=== PATIENT | male | born 1960 | race Caucasian/White ===

== ENCOUNTER → 2018-03-29 09:45 | Outpatient (CLI) | payer OTHER, SELFPAY ==
--- NOTE | 2018-03-29 09:52 | US_ITS ---
STUDY: ABDOMINAL ULTRASOUND - RIGHT UPPER QUADRANT REASON FOR VISIT: Male, 57 years old. Right upper quadrant pain. TECHNIQUE: Ultrasound evaluation of the right upper quadrant was performed with real-time and static aguilar-scale imaging. TECHNICAL QUALITY: Adequate. COMPARISON: None. FINDINGS: Liver: The liver measures 13.2 cm. There is normal echogenicity of the liver. The bile ducts are within normal limits. There is hepatic color flow. The direction of portal flow is hepatopetal. There is no demonstrated mass lesion. Gallbladder: Normal distended gallbladder. The gallbladder wall measures 5 mm. There is a negative sonographic Mccloud's sign. There is no pericholecystic fluid. There are no gallstones. Common Bile Duct (C.B.D.): The common bile duct measures 4 mm. Pancreas: Normal size of the head, body and tail of the pancreas. There is normal echogenicity of the pancreas. There is no demonstrated pancreatic mass or cyst. Right Kidney: Normal size of the right kidney. The right kidney measures 10.3 cm. Normal renal cortex. The right cortex measures 1.4 cm. There is no demonstrated renal mass or cyst. There is no right hydronephrosis. US/Abdomen Limited IMPRESSION: Diffuse gallbladder wall thickening which may represent chronic cholecystitis or malignancy. No gallstones or pericholecystic cystic fluid. Electronically Signed: Phillip Shah MD at 5:21 EST , Service support ,
== END ==
DX: R10.11 Right upper quadrant pain (principal)
CPT/HCPCS: 76705

== ENCOUNTER 2018-05-10 07:57 | Day surgery (SDC) | payer OTHER, SELFPAY ==
[2018-04-25 09:45] VITALS: BMI 28.8
[2018-05-10] VITALS (7 sets, daily range): BP systolic 92–124; BP diastolic 58–83; PULSE 64–77; RESP 14–18; TEMP 36.1–36.4; O2SAT 95–98; BMI 28.3
--- NOTE | 2018-05-10 09:30 | EGD_PTH ---
PATIENT: PRECIOUS CURIEL LOC: EN U#:[id number] AGE/SX: 57/M ROOM: RE05/10/[address]: Dr. Anthony Mason MD : 1960 BED: DIS: 05/10/2018 SPEC #: [id number] RECD: 05/10/18 10:15 STATUS: CRISTOBAL AR #: [id number] ORLIN: 05/10/18 09:[address]: Anthony Mason DEPT: SURGICAL PATHOLOGY RECD BY: Frank Gloria ENTERED: 05/10/18 11:13 SP TYPE: EGD BIOPSY OTHR DR: Dr. Farzad Acosta MD Tissues: Gastric mucous membrane Procedures: Surgery Specimen Level IV HEADER OPERATION: Colonoscopy, EGD ([facility] [place]) PRE-OP DIAGNOSIS: RUQ pain; epigastric abdominal pain; screening TISSUE SUBMITTED: Antral biopsy for H. pylori and pathology MICROSCOPIC DIAGNOSIS Antral biopsy: Mild gastritis. See microscopic description and comment. SJ:rianna 05/11/18 COMMENT The results of immunohistochemistry for Helicobacter pylori will be reported separately ([id number]). MICROSCOPIC DESCRIPTION Slides are reviewed. The specimen shows fragments of gastric mucosa with chronic inflammatory cell infiltrates in the lamina propria consisting of lymphocytes and plasma cells, consistent with mild chronic gastritis. GROSS DESCRIPTION Received in fixative is one container labeled with the patient's name and designated antral biopsy. The specimen consists of one irregular fragment of light kiser soft tissue that measures 0.2 x 0.2 x 0.1 cm. The specimen is totally submitted in one cassette. / AM:rianna 05/10/18 TC:3 CPT: 18026
--- NOTE | 2018-05-10 09:30 | IMM_PTH ---
PATIENT: PRECIOUS CURIEL LOC: EN U#:[id number] AGE/SX: 57/M ROOM: RE05/10/[address]: Dr. Anthony Mason MD : 1960 BED: DIS: 05/10/2018 SPEC #: [id number] RECD: 05/10/18 11:46 STATUS: CRISTOBAL REChing #: [id number] ORLIN: 05/10/18 09:[address]: Anthony Mason DEPT: IMMUNOHISTOCHEMISTRY RECD BY: Irina Osullivan ENTERED: 05/10/18 11:46 SP TYPE: IMMUNO OTHR DR: Dr. Frazad Acosta MD Tissues: Stomach, NOS Procedures: H Pylori (initial) PHYSICIAN & INSTITUTION [place] [id number] SPECIMEN INFORMATION: Tissue Source: Antral biopsy Clinical Info: RUQ pain, epigastric abdominal pain Specimen Number: [id number] CPT code: 24596 METHODOLOGY: Deparaffinized sections of prefer/formalin-fixed tissue or PAP/DQ stained slides are incubated with monoclonal/polyclonal antibodies/oligonucleotide probes. Localization is made via biotin free immunoperoxidase method. Appropriate controls are performed and reacted as expected. Results on target cell population are indicated in the following table: RESULTS: ANTIBODY / CLONE RESULT H Pylori (polyclonal) negative These tests were developed and their performance characteristics determined by [facility]. They may not have been cleared or approved by the U.S. Food and Drug Administration. The FDA has determined that such clearance or approval is not necessary. INTERPRETATION: Antral biopsy: Negative for Helicobacter pylori organisms. SJ:rianna 05/11/18
--- NOTE | 2018-05-10 09:57 | OP.ENDO_ITS ---
Patient Name: Stone Dahl Procedure Date: 05/10/2018 9:30 AM Date of : 1960 Age: 57 Procedure: Upper GI endoscopy Indications: Epigastric abdominal pain, Abdominal pain in the right upper quadrant Providers: Anthony Mason MD Referring MD: Farzad Acosta Medicines: See the Anesthesia note for documentation of the administered medications Patient Profile: This is a 57 year old male. Refer to note in patient chart for documentation of history and physical. Complications: No immediate complications. Procedure: Pre-Anesthesia Assessment: - Prior to the procedure, a History and Physical was performed, and patient medications and allergies were reviewed. The patient's tolerance of previous anesthesia was also reviewed. The risks and benefits of the procedure and the sedation options and risks were discussed with the patient. All questions were answered, and informed consent was obtained. Prior Anticoagulants: The patient has taken no previous anticoagulant or antiplatelet agents. ASA Grade Assessment: II - A patient with mild systemic disease. After reviewing the risks and benefits, the patient was deemed in satisfactory condition to undergo the procedure. After obtaining informed consent, the endoscope was passed under direct vision. Throughout the procedure, the patient's blood pressure, pulse, and oxygen saturations were monitored continuously. The gastroscope was introduced through the mouth, and advanced to the second part of duodenum. The upper GI endoscopy was accomplished without difficulty. The patient tolerated the procedure well. Scope In: 9:38:32 AM Scope Out: 9:40:58 AM Total Procedure Duration Time 0 hours 2 minutes 26 seconds Findings: The Z-line was regular and was found 40 cm from the incisors. No biopsies or other specimens were collected for this exam. The examined esophagus was normal. The entire examined stomach was normal. Biopsies were taken with a cold forceps for Helicobacter pylori testing. The examined duodenum was normal. No biopsies or other specimens were collected for this exam. Impression: - Z-line regular, 40 cm from the incisors. No specimens collected. - Normal esophagus. - Normal stomach. Biopsied. - Normal examined duodenum. No specimens collected. Recommendation: - Discharge patient to home. - Resume previous diet. - Continue present medications. - Await pathology results. - Repeat upper endoscopy (date not yet determined) for screening purposes. - Return to my office in 1 week. Procedure Code(s): --- Professional --- 07797, Esophagogastroduodenoscopy, flexible, transoral; with biopsy, single or multiple Diagnosis Code(s): --- Professional --- R10.13, Epigastric pain R10.11, Right upper quadrant pain CPT copyright 2017 [employer]. All rights reserved. The codes documented in this report are preliminary and upon signal manager review may be revised to meet current compliance requirements. MD Anthony Gore MD 05/10/2018 9:57:25 AM This report has been signed electronically. Number of Addenda: 0 Note Initiated On: 05/10/2018 9:30 AM
--- NOTE | 2018-05-10 10:00 | OP.ENDO_ITS ---
Patient Name: Stone Dahl Procedure Date: 05/10/2018 9:41 AM Date of : 1960 Age: 57 Procedure: Colonoscopy Indications: Screening for colorectal malignant neoplasm Providers: Anthony Mason MD Referring MD: Farzad Acosta Medicines: See the Anesthesia note for documentation of the administered medications Patient Profile: This is a 57 year old male. Refer to note in patient chart for documentation of history and physical. Last Colonoscopy: none. The patient's first colonoscopy is today. Complications: No immediate complications. Procedure: Pre-Anesthesia Assessment: - Prior to the procedure, a History and Physical was performed, and patient medications and allergies were reviewed. The patient's tolerance of previous anesthesia was also reviewed. The risks and benefits of the procedure and the sedation options and risks were discussed with the patient. All questions were answered, and informed consent was obtained. Prior Anticoagulants: The patient has taken no previous anticoagulant or antiplatelet agents. ASA Grade Assessment: II - A patient with mild systemic disease. After reviewing the risks and benefits, the patient was deemed in satisfactory condition to undergo the procedure. After I obtained informed consent, the scope was passed under direct vision. Throughout the procedure, the patient's blood pressure, pulse, and oxygen saturations were monitored continuously. The colonoscope was introduced through the anus and advanced to 3 cm into the ileum. The colonoscopy was performed without difficulty. The patient tolerated the procedure well. The quality of the bowel preparation was good. Scope In: 9:43:25 AM Scope Withdrawal Time 0 hours 6 minutes 30 seconds Scope Out: 9:52:39 AM Total Procedure Duration Time 0 hours 9 minutes 14 seconds Findings: A few small-mouthed diverticula were found in the sigmoid colon. Non-bleeding internal hemorrhoids were found during retroflexion. The hemorrhoids were mild and small. The exam was otherwise without abnormality. Impression: - Diverticulosis in the sigmoid colon. - Non-bleeding internal hemorrhoids. - The examination was otherwise normal. - No specimens collected. Recommendation: - Discharge patient to home. - Resume previous diet. - Continue present medications. - Repeat colonoscopy in 10 years for screening purposes. - Return to my office in 1 week. Procedure Code(s): --- Professional --- 49214, Colonoscopy, flexible; diagnostic, including collection of specimen(s) by brushing or washing, when performed (separate procedure) Diagnosis Code(s): --- Professional --- Z12.11, Encounter for screening for malignant neoplasm of colon K64.8, Other hemorrhoids K57.30, Diverticulosis of large intestine without perforation or abscess without bleeding CPT copyright 2017 [employer]. All rights reserved. The codes documented in this report are preliminary and upon bean sprout grower review may be revised to meet current compliance requirements. MD Anthony Gore MD 05/10/2018 9:59:50 AM This report has been signed electronically. Number of Addenda: 0 Note Initiated On: 05/10/2018 9:41 AM
--- OUTSIDE RECORDS SUMMARY | 2018-08-11 08:19 | XMS RPT_ITS ---
:1960 Author Organization OHIP Support Name Relationship Address Phone COBLENTZ JACOB Unavailable [address] + [place] [address] DAHL, DIANNE Unavailable [address] + [place] [address] DAHL, ROLF Unavailable . + [place] [address] COBLENTZ JACOB Un[address] + [place] [address] DAHL, DIANNE Unavailable [address] + [facility] [address] DAHL, ROLF Unavailable Unavailable + [place] [address] COBLENTZ JACOB Un[address] + [place] [address] DAHL, DIANNE Unavailable [address] + [place] [address] DAHL, ROLF Unavailable . + [place] [address] COBLENTZ JACOB Unavailable [address] + [place] [address] DAHL, DIANNE Unavailable [address] + [facility] [address] DAHL, ROLF Unavailable Unavailable + [place] [address] COBLENTZ JACOB Un[address] + [place] [address] DAHL, DIANNE Unavailable [address] + [place] [address] DAHL, ROLF Unavailable Unavailable + [place] [address] MOISÉS ZOILA Unavailable [address] + [place] [address] COBLENJOHAN JACOB Unavailable . + [place] [address] DIANNE DAHL Unavailable [address] + [place] [address] COBLENTZ JACOB Un[address] + [place] [address] DIANNE DAHL Unavailable [address] + [place] [address] Care Team Providers Name Role Phone Leelee Presley Admitting Unavailable Leelee Presley Attending Unavailable Jeremias Nguyen Referring Unavailable No Doctor Assigned, Nodr Primary Care Unavailable Jeremias Nguyen Consulting Unavailable Christy Acosta Admitting Unavailable Christy Acosta Attending Unavailable No Doctor Assigned, Nodolamide Primary Care Unavailable CHRISTY ACOSTA Primary Care Unavailable SAURAV BENNETT Attending Unavailable Isabella, Anthony Attending Unavailable Isabella, Anthony Referring Unavailable Christy Acosta Primary Care Unavailable Isabella, Anthony Consulting Unavailable Payton Carpenter PA-C Attending Unavailable Christy Acosta Referring Unavailable Dave, Christy Attending Unavailable Dave, Christy Referring Unavailable Christy Acosta Primary Care Unavailable [place], Anthony Attending Unavailable Dave, Christy Referring Unavailable Isabella, Anthony Attending Unavailable [place], Anthony Referring Unavailable Christy Acosta Primary Care Unavailable Moodisflorentin, Jona Attending Unavailable [place], Anthony Referring Unavailable [place], Anthony Attending Unavailable Isabella, Anthony Referring Unavailable Christy Acosta Primary Care Unavailable PROBLEMS PROBLEMS DATE TYPE CONDITION / CODE ATTENDING STATUS SOURCE 05/31/2018 Unknown I45.10 - Unspecified [place], Active [place] right bundle-branch [facility] block / I45.10(ICD-10) Hospital Repository 05/31/2018 Unknown R94.31 - Abnormal [place], Active [place] electrocardiogram [facility] [ECG] [EKG] / Hospital R94.31(ICD-10) Repository 05/31/2018 Unknown I10 - Essential [place], Active [place] (primary) hypertension [facility] / I10(ICD-10) Hospital Repository 05/18/2018 Unknown K82.8 - Other Isabella, Active [place] specified diseases of [facility] gallbladder / Hospital K82.8(ICD-10) Repository 04/27/2018 Unknown R10.11 - Right upper Christy Acosta Active [place] quadrant pain / Community R10.11(ICD-10) Hospital Repository PROCEDURES PROCEDURES No Procedure Records FoundRESULTS RESULTS SURGERY VISIT REPORT Observed: 05/29/2018 Status: F Source: [place] 3:29 PM [facility] REPOSITORY [facility] [address] [place] [address] OFFICE VISIT Date of Service: 05/29/18 MR#: [id number] Acct: [id number] Name: STONE DAHL Rep #: [id number] : 1960 Provider: Payton Carpenter PA-C Age/Sex: 57/M Location: [facility] Status: Signed Intake Intake Visit Reasons: Herminia 05/18 Chief Complaint: RUQ pain Allergies No Known Allergies Allergy (Verified 05/09/18 11:30) Medications naproxen sodium 220 mg tablet 220 mg PO BID PRN 04/25/18 [History Confirmed 05/09/18] Subjective Details: Patient is a 57 y/o male I am following for RUQ pain. Dr. Mason performed a laparoscopic cholecystectomy on 05/18/18. Patient tolerated the procedure well. Pathology demonstrated chronic cholecystitis. Patient also had an upper and lower scope on 05/10/18 which showed mild gastritis otherwise unremarkable. Patient had an unremarkable colonoscopy. Patient denies nausea, vomiting and abdominal pain. Patient notes urgency and loose stools once a day. He notes his appetite has returned to normal. Objective Details: Abdomen- soft, nontender. Incisions c/d/i. no erythema or infection noted. Assessment AND Plan Problems 1. Thickening of wall of gallbladder K82.8 Plan - Follow-up as needed Coding Level of Care Code Global Post Op Diagnoses Thickening of wall of gallbladder K82.8 05/29/18 1529 <Electronically signed by Payton Carpenter PA-C> Date Payton Carpenter PA-C Cosigner Signature: Date (if applicable) CC: Christy Acosta MD 12 LEAD ELECTROCARDIOGRAM Observed: 05/22/2018 Status: F Source: [place] 1:51 PM [facility] REPOSITORY [facility] Cardiovascular Services [address] [place] [address] 12 Lead EKG 05/18/18 0924 MR#: [id number] Acct: [id number] Name: STONE DAHL Rep #: [id number] : 1960 57 From: Jona Clifford MD Attending Dr: Anthony Mason MD Status: [facility] Ordering Dr: Anthony Mason MD Date: 05/18/18 Location: [facility] Sex: M C Admitted: Test Reason : PRE-OP Blood Pressure : / mmHG Vent. Rate : 066 BPM Atrial Rate : 066 BPM P-R Int : 182 ms QRS Dur : 136 ms QT Int : 426 ms P-R-T Axes : 072 049 027 degrees QTc Int : 446 ms Normal sinus rhythm Right bundle branch block Abnormal ECG Confirmed by VENESSA MENG, JONA ([id number]), editor map FIONA LIM ([id number]) on 05/22/2018 1:51:17 PM Referred By: Anthony Mason Confirmed By:JONA CLIFFORD MD 05/22/18 1351 Date Jona Clifford MD CC: Anthony Mason MD; Christy Acosta MD Signed OPERATIVE REPORT Observed: 05/18/2018 Status: F Source: [place] 12:13 PM [facility] Medical Records Department [address] [place] [address] Operative Report 05/18/18 1125 MR#: [id number] Acct: [id number] Name: HILLARY DAHLE Michael Rep #: [id number] : 1960 57 From: Anthony Mason MD PCP: Christy Acosta MD Status: REG [facility] Y Location: AC16-1 Problem List (1) Right upper quadrant abdominal pain Status: Acute (2) Thickening of wall of gallbladder Status: Acute (3) Epigastric abdominal pain Status: Acute Report of Operation Date of Procedure: 05/18/18 Pre-Operative Diagnosis: Thickening of the wall of gallbladder. Right upper quadrant abdominal pain. Epigastric abdominal pain Post-Operative Diagnosis: Same Surgery/Procedure Performed:: Laparoscopic cholecystectomy Type of Anesthesia:: General Anesthesiologist: Filiberto Cox Specimen's removed: Gallbladder Estimated Blood Loss (mL): < 25 cc Description of Procedure: Patient was brought into the operating room. Placed in the supine position. Under excellent general trach intubation the abdomen was sterilely prepped and draped in the usual sterile fashion. Local was injected supraumbilically. A curvilinear incision was made. Dissection was carried down to an umbilical defect. I detached it from the umbilicus grabbed the fascia with a [place] in place a varies needle inside the abdomen. I inflated the abdomen to 15 torr. A 10/12 trocar was placed without difficulty. The patient was placed in the head up and rotated to the left position. A subxiphoid #5 trocar was placed, inferior to this another #5 trocar was placed, laterally a #5 trocar was placed. All of these under direct visualization without injury to underlying structures. Fundus of the gallbladder was grasped retracted in a cephalad direction. Patient had dense adhesions on the gallbladder which were easily taken down with blunt dissection. I dissected out the cystic duct, the cystic artery, and posterior to the liver. I placed hemoclips proximally distally on the duct and ligated the duct. I placed hemoclips proximally distally on the artery and ligated the artery. I placed a clip on the posterior branch of the cystic artery. I deliver the gallbladder from the gallbladder bed with use of electrocautery. I had some spillage of bile but there were no stones. I placed a specimen a specimen bag and delivered through the umbilical port without difficulty. I irrigated the right upper quadrant and retrieved all the bile that was spilled. I had excellent hemostasis. I removed the 1012 trocar and closed the umbilical defect with 3 interrupted sutures of #1 Nurolon's. I reinflated the abdomen and inspected my repair it looked good and had good hemostasis. I removed the other trochars under direct visualization. Good hemostasis was noted. Skin incisions were closed with septicum stitches of 4-0 Monocryl. Steri-Strips were applied. Sterile dressings were applied. The patient tolerated the procedure well. - Admit VTE Documentation VTE Present on Admission: No VTE Mechan Device Prophylaxis: SCD's VTE Pharm Prophylaxis ordered?: No Reason prophylaxis not ordered:: Treatment Not Indicated 05/18/18 1213 <Electronically signed by Anthony Mason MD> Date Anthony Mason MD CC: Anthony Mason MD; Christy Acosta MD Signed DISCHARGE INSTRUCTION Observed: 05/18/2018 Status: F Source: [place] 11:28 AM [facility] REPOSITORY [facility] Medical Records Department [address] [place] [address] Instructions for Home/Discharge Instructions 05/18/18 1127 MR#: [id number] Acct: [id number] Name: STONE DAHL Rep #: [id number] : 1960 57 From: Anthony Mason MD PCP: Christy Acosta MD Status: [facility] Discharge Diet: Light diet - advance as tolerated Discharge Activity: May Not Drive - for 2-3 days or while taking narcotic pain medications., - - Do not drive, work heavy equipment or sign legal documents for 24 hours. May shower in (days): 1 - with the bandage in place. Additional Activity Instructions:: Pain medication may cause nausea. You should typically eat light foods as you take your pain medications. Pain medication may also cause constipation. If this is a problem for you, please discuss with your doctor. Call your doctor if your incision/area has: Continuous Slow Oozing, Sudden Increased Bleeding, Increased Pain/ Swelling, Increased Redness, Foul Smelling Discharge Call your doctor if you observe: Fever of 101 or Higher Suture Line Care: Avoid Pulling/Pushing, Avoid Pinching/Bending Additional Dressing/Incision Instructions:: Leave operative bandaids on for 2 days. When you remove dressing, leave Steri-Strips on until your follow-up appointment, or until the Steri-Strips fall off on their own. Allergies/Adverse Reactions: Allergies No Known Allergies Allergy (Verified 05/09/18 11:30) Medications to take at Discharge naproxen sodium 220 mg tablet 220 mg PO BID PRN 04/25/18 Oxycodone HCl/Acetaminophen [Percocet 5/325] 1 - 2 tab PO Q4H PRN PRN 5 Days #30 tab 05/18/18 The following prescriptions were given: Oxycodone HCl/Acetaminophen [Percocet 5/325] 1 - 2 tab PO Q4H PRN PRN 5 Days #30 tab PRN Reason: Pain Primary Care Physician: Christy Acosta MD [Primary Care Provider] - Test Results: Test results from this visit will be discussed in further detail at your follow-up appointment, if applicable. Please Follow Up With: Anthony Mason MD - Please call [phone] to schedule an appointment. When: 7 days after your surgery. 05/18/18 1128 <Electronically signed by Anthony Mason MD> Date Anthony Mason MD CC: Christy Acosta MD Signed GALLBLADDER Observed: 05/18/2018 Status: F Source: [place] 11:10 AM [facility] REPOSITORY Patient: STONE DAHL : 1960 (57/M) Acct Num: [id number] Phys: Anthony Mason MD Unit Num: [id number] Loc: [facility] Specimen: [id number] Received: 05/18/18 - 1227 Spec Type: GALLBLADDE TISSUES 1 TISSUES: Gallbladder, NOS GROSS DESCRIPTION Received is one container labeled with the patient's name and designated gallbladder. The specimen consists of a gallbladder measuring 6.5 x 4 x 1 cm. The external surface is smooth and glistening. Focally, it is granular, hemorrhagic and contains cautery artifact. The lumen of the gallbladder contains yellow mucoid bile and no calculi. The mucosa is bile-stained and without any mass lesions. The gallbladder wall averages 0.2 cm in thickness and is free of mass lesions. Enterprise Integration Architect sections of the gallbladder and the cystic duct are submitted in one cassette. / AM:rianna 05/18/18 TC:3 CPT: 66348 HEADER OPERATION: Laparoscopic cholecystectomy PRE-OP DIAGNOSIS: Thickening of wall of gallbladder, right upper quadrant pain TISSUE SUBMITTED: Gallbladder MICROSCOPIC DESCRIPTION Slides are reviewed. MICROSCOPIC DIAGNOSIS Gallbladder, cholecystectomy: Chronic cholecystitis. AM:rianna 05/19/18 Signed Douglas José, 05/19/18 <signature on file> Performed By: #### PGALL #### [facility] [address] [place], [place], [id number] CBC-COMPLETE BLOOD CNT Collected: 05/12/2018 Status: F Source: [place] NO DIFF 11:12 AM [facility] REPOSITORY Order Comment: Reason for Laboratory Test preop TYPE CODE TESTS RESULT OUT OF RANGE REFERENCE UNITS LAB L100.1000 4.4-11.0 K/mm3 Normal WBC 4.8 LAB L100.1200 4.6-6.2 M/mm3 Low RBC 4.49 LAB L100.1300 13.0-16.5 g/dl Normal HGB 14.9 LAB L100.1400 40-54 % Normal HCT 42.1 LAB L100.1500 80-94 fL Normal MCV 93.8 LAB L100.1600 27.0-32.0 pg High MCH 33.2 LAB L100.1700 32-36 g/gl Normal MCHC 35.4 LAB L100.1810 11.6-14.6 % Normal RDW CV 12.3 LAB L100.1820 35.1-43.9 fl Normal RDW SD 41.3 LAB L100.1900 150-450 K/mm3 Normal PLT 167 LAB L100.2000 6.2-12.0 fl Normal MPV 9.8 Performed By: #### L100.0500 #### [facility] [address] [place], [address] BASIC METABOLIC Collected: 05/12/2018 Status: F Source: [place] PROFILE (BMP) 11:12 AM [facility] REPOSITORY Order Comment: Reason for Laboratory Test preop TYPE CODE TESTS RESULT OUT OF RANGE REFERENCE UNITS LAB L501.0100 74-106 mg/dL Normal GLU 99 Result Comment: Please note revised GLUCOSE reference range effective 2017. LAB L501.1000 7-18 mg/dL High BUN 19 LAB L501.1100 0.70-1.30 mg/dL Normal CREAT,SERUM 1.09 Result Comment: The validity of the calculated GFR AND GFRAA in patients over 70 years has not been determined. Clinical correlation is essential. LAB L501.1110 >60 mL/min Normal EST GFR 73 Result Comment: Non- GFR Calc LAB L501.1115 >60 mL/min Normal EST GFR - AA 89 Result Comment: GFR Calc LAB L501.1300 10-20 RATIO Normal BUN/CRE 17.4 LAB L501.2200 8.5-10.1 mg/dL CA Normal 8.8 LAB L501.5300 136-145 mmol/L NA Normal 139 LAB L501.5600 3.5-5.1 mmol/L K Normal 4.4 LAB L501.5900 98-107 mmol/L CL Normal 105 LAB L501.6100 21.0-32.0 mmol/L Normal CO2 29.0 LAB L501.6200 5-15 Normal GAP 5 Performed By: #### L500.2500 #### [facility] [address] [facility] [place], [address] OPERATIVE REPORT - Observed: 05/10/2018 Status: F Source: [place] [facility] 10:00 AM [facility] REPOSITORY [facility] Medical Records Department [address] [facility] [place] [address] Operative Report - Endoscopy MR#: [id number] Acct: [id number] Name: STONE DAHL Rep #: [id number] : 1960 57 From: Anthony Mason MD PCP: Christy Acosta MD Status: REG [facility] Patient Name: Stone Dahl Procedure Date: 05/10/2018 9:41 AM Date of : 1960 Age: 57 Procedure: Colonoscopy Indications: Screening for colorectal malignant neoplasm Providers: Anthony Mason MD Referring MD: Christy Acosta Medicines: See the Anesthesia note for documentation of the administered medications Patient Profile: This is a 57 year old male. Refer to note in patient chart for documentation of history and physical. Last Colonoscopy: none. The patient's first colonoscopy is today. Complications: No immediate complications. Procedure: Pre-Anesthesia Assessment: - Prior to the procedure, a History and Physical was performed, and patient medications and allergies were reviewed. The patient's tolerance of previous anesthesia was also reviewed. The risks and benefits of the procedure and the sedation options and risks were discussed with the patient. All questions were answered, and informed consent was obtained. Prior Anticoagulants: The patient has taken no previous anticoagulant or antiplatelet agents. ASA Grade Assessment: II - A patient with mild systemic disease. After reviewing the risks and benefits, the patient was deemed in satisfactory condition to undergo the procedure. After I obtained informed consent, the scope was passed under direct vision. Throughout the procedure, the patient's blood pressure, pulse, and oxygen saturations were monitored continuously. The colonoscope was introduced through the anus and advanced to 3 cm into the ileum. The colonoscopy was performed without difficulty. The patient tolerated the procedure well. The quality of the bowel preparation was good. Scope In: 9:43:25 AM Scope Withdrawal Time 0 hours 6 minutes 30 seconds Scope Out: 9:52:39 AM Total Procedure Duration Time 0 hours 9 minutes 14 seconds Findings: A few small-mouthed diverticula were found in the sigmoid colon. Non-bleeding internal hemorrhoids were found during retroflexion. The hemorrhoids were mild and small. The exam was otherwise without abnormality. Impression: - Diverticulosis in the sigmoid colon. - Non-bleeding internal hemorrhoids. - The examination was otherwise normal. - No specimens collected. Recommendation: - Discharge patient to home. - Resume previous diet. - Continue present medications. - Repeat colonoscopy in 10 years for screening purposes. - Return to my office in 1 week. Procedure Code(s): --- Professional --- 88391, Colonoscopy, flexible; diagnostic, including collection of specimen(s) by brushing or washing, when performed (separate procedure) Diagnosis Code(s): --- Professional --- Z12.11, Encounter for screening for malignant neoplasm of colon K64.8, Other hemorrhoids K57.30, Diverticulosis of large intestine without perforation or abscess without bleeding CPT copyright 2017 [employer]. All rights reserved. The codes documented in this report are preliminary and upon pediatric lpn review may be revised to meet current compliance requirements. MD Anthony Gore MD 05/10/2018 9:59:50 AM This report has been signed electronically. Number of Addenda: 0 Note Initiated On: 05/10/2018 9:41 AM 05/10/18 1000 Date Anthony Mason MD Cosigner Signature: Date (if indicated) CC: Anthony Mason MD; Christy Acosta MD Date Dictated: 05/10/18 0941 Date Transcribed: Lens Polisher Hand: DP Signed OPERATIVE REPORT - Observed: 05/10/2018 Status: F Source: [facility] 9:57 AM [facility] Medical Records Department [address] [place] [address] Operative Report - Endoscopy MR#: [id number] Acct: [id number] Name: STONE DAHL Rep #: [id number] : 1960 57 From: Anthony Mason MD PCP: Christy Acosta MD Status: [facility] Patient Name: Stone Dahl Procedure Date: 05/10/2018 9:30 AM Date of : 1960 Age: 57 Procedure: Upper GI endoscopy Indications: Epigastric abdominal pain, Abdominal pain in the right upper quadrant Providers: Anthony Mason MD Referring MD: Christy Acosta Medicines: See the Anesthesia note for documentation of the administered medications Patient Profile: This is a 57 year old male. Refer to note in patient chart for documentation of history and physical. Complications: No immediate complications. Procedure: Pre-Anesthesia Assessment: - Prior to the procedure, a History and Physical was performed, and patient medications and allergies were reviewed. The patient's tolerance of previous anesthesia was also reviewed. The risks and benefits of the procedure and the sedation options and risks were discussed with the patient. All questions were answered, and informed consent was obtained. Prior Anticoagulants: The patient has taken no previous anticoagulant or antiplatelet agents. ASA Grade Assessment: II - A patient with mild systemic disease. After reviewing the risks and benefits, the patient was deemed in satisfactory condition to undergo the procedure. After obtaining informed consent, the endoscope was passed under direct vision. Throughout the procedure, the patient's blood pressure, pulse, and oxygen saturations were monitored continuously. The gastroscope was introduced through the mouth, and advanced to the second part of duodenum. The upper GI endoscopy was accomplished without difficulty. The patient tolerated the procedure well. Scope In: 9:38:32 AM Scope Out: 9:40:58 AM Total Procedure Duration Time 0 hours 2 minutes 26 seconds Findings: The Z-line was regular and was found 40 cm from the incisors. No biopsies or other specimens were collected for this exam. The examined esophagus was normal. The entire examined stomach was normal. Biopsies were taken with a cold forceps for Helicobacter pylori testing. The examined duodenum was normal. No biopsies or other specimens were collected for this exam. Impression: - Z-line regular, 40 cm from the incisors. No specimens collected. - Normal esophagus. - Normal stomach. Biopsied. - Normal examined duodenum. No specimens collected. Recommendation: - Discharge patient to home. - Resume previous diet. - Continue present medications. - Await pathology results. - Repeat upper endoscopy (date not yet determined) for screening purposes. - Return to my office in 1 week. Procedure Code(s): --- Professional --- 45590, Esophagogastroduodenoscopy, flexible, transoral; with biopsy, single or multiple Diagnosis Code(s): --- Professional --- R10.13, Epigastric pain R10.11, Right upper quadrant pain CPT copyright 2017 [employer]. All rights reserved. The codes documented in this report are preliminary and upon pediatric lpn review may be revised to meet current compliance requirements. MD Anthony Gore MD 05/10/2018 9:57:25 AM This report has been signed electronically. Number of Addenda: 0 Note Initiated On: 05/10/2018 9:30 AM 05/10/18 0957 Date Anthony Kingigndeven Signature: Date (if indicated) CC: Anthony Mason MD; Christy Acosta MD Date Dictated: 05/10/18929 Date Transcribed: Lens Polisher Hand: ALBA Signed EGD ([facility]) Observed: 05/10/2018 Status: F Source: [place] 9:30 AM [facility] REPOSITORY Patient: STONE DAHL : 1960 (57/M) Acct Num: [id number] Phys: Isabella MENG,Anthony Unit Num: [id number] Loc: EN Specimen: [id number] Received: 05/10/18 - 1015 Spec Type: EGD BIOPSY TISSUES 1 TISSUES: Gastric mucous membrane COMMENT The results of immunohistochemistry for Helicobacter pylori will be reported separately ([id number]). GROSS DESCRIPTION Received in fixative is one container labeled with the patient's name and designated antral biopsy. The specimen consists of one irregular fragment of light kiser soft tissue that measures 0.2 x 0.2 x 0.1 cm. The specimen is totally submitted in one cassette. / AM:rianna 05/10/18 TC:3 CPT: 18180 HEADER OPERATION: Colonoscopy, EGD ([facility]) PRE-OP DIAGNOSIS: RUQ pain; epigastric abdominal pain; screening TISSUE SUBMITTED: Antral biopsy for H. pylori and pathology MICROSCOPIC DESCRIPTION Slides are reviewed. The specimen shows fragments of gastric mucosa with chronic inflammatory cell infiltrates in the lamina propria consisting of lymphocytes and plasma cells, consistent with mild chronic gastritis. MICROSCOPIC DIAGNOSIS Antral biopsy: Mild gastritis. See microscopic description and comment. SJ:rianna 05/11/18 Signed Kavon Reyes MD 05/11/18 <signature on file> Performed By: #### PEGD #### [facility] [place], [address] IMMUNOHISTOCHEMISTRY Observed: 05/10/2018 Status: F Source: [place] 9:30 AM [facility] REPOSITORY Patient: STONE DAHL : 1960 (57/M) Acct Num: [id number] Phys: Anthony Mason MD Unit Num: [id number] Loc: EN Specimen: [id number] Received: 05/10/18 - 1146 Spec Type: IMMUNO TISSUES 1 TISSUES: Stomach, NOS SPECIMEN INFORMATION: Tissue Source: Antral biopsy Clinical Info: RUQ pain, epigastric abdominal pain Specimen Number: [id number] CPT code: 50681 METHODOLOGY: Deparaffinized sections of prefer/formalin-fixed tissue or PAP/DQ stained slides are incubated with monoclonal/polyclonal antibodies/oligonucleotide probes. Localization is made via biotin free immunoperoxidase method. Appropriate controls are performed and reacted as expected. Results on target cell population are indicated in the following table: RESULTS: ANTIBODY / CLONE RESULT H Pylori (polyclonal) negative These tests were developed and their performance characteristics determined by [facility]. They may not have been cleared or approved by the U.S. Food and Drug Administration. The FDA has determined that such clearance or approval is not necessary. INTERPRETATION: Antral biopsy: Negative for Helicobacter pylori organisms. SJ:rianna 05/11/18 PHYSICIAN AND INSTITUTION [place] [address] Signed Kavon Reyes MD 05/11/18 <signature on file> Performed By: #### PIMM #### [facility] [address] [place] [address], [id number] SURGERY VISIT REPORT Observed: 04/25/2018 Status: F Source: [place] 10:42 AM [facility] REPOSITORY [facility] [address] [place] [address] [address] [place] [address] OFFICE VISIT Date of Service: 04/25/18 MR#: [id number] Acct: [id number] Name: STONE DAHL Rep #: [id number] : 1960 Provider: Anthony Mason MD Age/Sex: 57/M Location: [facility] Status: Signed Intake Vital Signs04/25/18 Height 5 ft 10 in 04/25/18 Weight: 200 lb 7 oz 04/25/18 Body Mass Index (BMI) 28.8 04/25/18 Blood Pressure 172/94 H Intake Visit Reasons: RUQ Pain US [facility] 03/29 Chief Complaint: RUQ pain Cell Reliner Required: No Is patient in pain?: No Allergies No Known Allergies Allergy (Verified 04/25/18 09:46) Medications naproxen sodium 220 mg tablet 220 mg PO BID PRN 04/25/18 [History Confirmed 04/25/18] [facility] Medical History Hyperlipidemia (Acute) Sleep apnea (Acute) HTN (hypertension) (Chronic) Surgical History History of hernia repair (Acute) History of tonsillectomy (Acute) Family History Father Cirrhosis Social History Smoking Status: Former smoker HPI HPI HPI: STONE DAHL, is a 57 M who presents to the office today for right upper quadrant and right back pain as well as some epigastric discomfort. This is been going on for several months worsening with food at times as well as worsening with movement as of recently patient underwent a gallbladder ultrasound completed on 03/29/2018 this came back with an impression of diffuse gallbladder wall thickening which may represent chronic cholecystitis or malignancies no gallstone or pericholecystic fluid was identified at that time. Patient has not noticed any fevers or diarrhea at this time. Patient states that the discomfort is particularly worse at nighttime when he eats. ROS General General: Yes fatigue; no weight change, appetite, colon cancer, breast cancer or weakness HEENT HEENT: No difficulty swallowing, eye injury, eye surgery, swollen glands or hoarseness Endo Endocrine: No thyroid disease, diabetes mellitus, thyroid cancer, Hair loss, heat intolerance or cold intolerance Cardio Cardiovascular: Yes high blood pressure; no murmur, pacemaker, heart disease, atrial fibrillation, heart attack, heart stent, palpitations, shortness of breat with exertion or chest pain Resp Respiratory: Yes shortness of breath, Yes sleep apnea, No cough, No COPD, No asthma, No emphysema, No wheezing Gastro Gastrointestinal: Yes abdominal pain, No nausea or vomiting, Yes diarrhea, Yes constipation, No blood in stool, Yes acid reflux, No hemorrhoids, No ulcers, Yes gallbladder problem, No black,tarry stools Saravanan Hematologic: No blood thinners, No blood disorders, No bleeding, No anemia, No blood clots Neuro Neurologic: No weakness Exam Const General: well developed, no acute distress, well hydrated Orientation: oriented to person, oriented to place, oriented to time [facility] Head: normocephalic, atraumatic Ears: external ears normal Mouth: moist mucous membranes Eyes Sclera: sclerae normal Pupils: normal by confrontation Neck Neck: no lymphadenopathy noted Neck mass: No Thyroid: symmetrical, thyroid normal Chest Chest palpation AND inspection: normal inspection of the chest Resp Effort AND Inspection: normal respiratory effort Auscultation: clear to auscultation bilaterally Percussion: percussion normal Cardio Rate: regular rate Rhythm: regular rhythm Heart Sounds: no murmurs GI Palpation: soft, tender, no masses, no hepatosplenomegaly Auscultation: normal bowel sounds Rectal Exam: other Other: Rectal exam deferred. Extrem General: no clubbing, cyanosis or edema, normal to inspection Assessment AND Plan Problems 1. Thickening of wall of gallbladder K82.8 2. Right upper quadrant abdominal pain R10.11 3. Epigastric abdominal pain R10.13 4. Screening for colorectal cancer Z12.11; Z12.12 Plan I have discussed the above with the patient. I have offered the patient colonoscopy as well as an esophagogastroduodenoscopy for evaluation. I have explained the risks/benefits of the procedure and described the procedure. I have discussed the risks with the patient, including but not limited to: infection, bleeding, perforation of the GI tract requiring emergency surgery, inability to complete the procedure, injury to any internal organs, complications of anesthesia, etc. - the patient understands and agrees to proceed. I have answered all the patient's questions to the patient's satisfaction and the patient has no further questions. The patient has been given instructions for the colon cleansing preparation. After this is complete I believe it would be in his best interest if we remove his gallbladder given the ultrasound findings of a thickened gallbladder wall which could represent a malignancy. Reviewed the anatomy with the patient and discussed the procedure: laparoscopic cholecystectomy with possible cholangiograms, possible open. Review risks including but not limited to bleeding, infection, hernia, bile leak, retained gallstones requiring another procedure ERCP- Endoscopic Retrograde Cholangiopancreatography, injury to another organ (bile ducts, common bile duct, small bowel, etc.) and conversion to an open procedure. All questions were answered. Coding Level of Care Code Off vis,new,level 3 Diagnoses Thickening of wall of gallbladder K82.8 Right upper quadrant abdominal pain R10.11 Epigastric abdominal pain R10.13 Screening for colorectal cancer Z12.11; Z12.12 04/25/18 1042 <Electronically signed by Anthony Mason MD> Date Anthony Mason MD Cosigner Signature: Date (if applicable) CC: Christy Acosta MD ABDOMEN LIMITED Observed: 03/29/2018 Status: F Source: [place] 9:52 AM [facility] REPOSITORY [facility] Imaging Services [address] [place] [address] Abdomen Limited MR#: [id number] Acct: [id number] Name: STONE DAHL Rep #: [id number] : 1960 M 57 From: Phillip Shah PCP: Christy Acosta MD Status: REG CLI Study: Abdomen Limited Date of Exam: 03/29/18 Exam# [id number] Ordering Dr: Christy Acosta MD STUDY: ABDOMINAL ULTRASOUND - RIGHT UPPER QUADRANT REASON FOR VISIT: Male, 57 years old. Right upper quadrant pain. TECHNIQUE: Ultrasound evaluation of the right upper quadrant was performed with real-time and static aguilar-scale imaging. TECHNICAL QUALITY: Adequate. COMPARISON: None. FINDINGS: Liver: The liver measures 13.2 cm. There is normal echogenicity of the liver. The bile ducts are within normal limits. There is hepatic color flow. The direction of portal flow is hepatopetal. There is no demonstrated mass lesion. Gallbladder: Normal distended gallbladder. The gallbladder wall measures 5 mm. There is a negative sonographic Mccloud's sign. There is no pericholecystic fluid. There are no gallstones. Common Bile Duct (C.B.D.): The common bile duct measures 4 mm. Pancreas: Normal size of the head, body and tail of the pancreas. There is normal echogenicity of the pancreas. There is no demonstrated pancreatic mass or cyst. Right Kidney: Normal size of the right kidney. The right kidney measures 10.3 cm. Normal renal cortex. The right cortex measures 1.4 cm. There is no demonstrated renal mass or cyst. There is no right hydronephrosis. US/Abdomen Limited IMPRESSION: Diffuse gallbladder wall thickening which may represent chronic cholecystitis or malignancy. No gallstones or pericholecystic cystic fluid. Electronically Signed: Phillip Shah MD at 5:21 EST , Service support , CC: Christy Acosta MD Lens Polisher Hand: Signed ALLERGIES ALLERGIES DATE TYPE / CODE NAME / CODE REACTION SEVERITY SOURCE 05/09/2018 Drug No Known Unknown [facility] Allergy/416 Allergies/R78646 [facility] 885276(SNOM 0388(RXNORM) Repository ED CT) Drug NO KNOWN [facility] Three Class/62339 ALLERGIES Repository 1003(SNOMED CT) ENCOUNTERS ENCOUNTERS ADMIT/DISCHARGE ACCOUNT NUMBER ADMITTING ENCOUNTER LOCATION SOURCE CLASS 05/29/2018/05/29/19 [id number] Ambulatory BMSBuilding: [place] [address] BMS.[facility] Repository 05/18/2018 [id number] Ambulatory BMSBuilding: [place] BMS.CF.[facility] Repository 05/18/2018 [id number] Ambulatory BMSBuilding: [place] [facility] Repository 05/18/2018/05/18/20 [id number] Ambulatory [address] [facility] AC16 05/10/2018/05/10/20 [id number] Ambulatory [place] [facility] ding:ENRoom: Repository AC16 05/09/2018 [id number] Ambulatory Building:[facility] Repository 04/25/2018/04/25/20 [id number] Ambulatory BMSBuilding: [place] 18 [facility] Repository 03/29/2018 [id number] [facility] [place] [facility] 01/25/2018 [id number] Christy Acosta [facility] ding:[facility] Repository 07/06/2017/07/07/19 [id number] ding:SH.[facility] P Repository PAYERS PAYERS ENCOUNTER GUARANTOR PAYER SUBSCRIBER SOURCE 05/29/2018 STONE Rodriguez Primary ZOILA WEAVERDOB: [place] [id number] Insurance:MEDICAL [id number]. S. [facility], Number: Repository [place] [address]Mnl: [id number] Date:4261-17-10BJ BOX (YD) [address], [place] [address]OA: 05/29/2018 Secondary NOT GIVENUNK [place] Insurance:SELF PAY [facility] Number: Effective Repository Date:2018-05-27 05/18/2018 STONE Rodriguez Primary ZOILA WEAVERDOB: [place] [id number] Insurance:MEDICAL [id number]. S. [facility], Number: Repository [place] [address]Zwn: [id number] Date:1824-31-52BO BOX (OA) [address], [place] [address]NJ: 05/18/2018 Secondary NOT GIVENUNK [place] Insurance:SELF PAY [facility] Number: Effective Repository Date:2018-05-18 05/18/2018 STONE Rodriguez Primary ZOILA WEAVERDOB: [place] [id number] Insurance:MEDICAL [id number]. S. [facility], Number: Repository [place] [address]Wjn: [id number] Date:8388-83-72EU [address] () [address], [place] [address]OL: 05/18/2018 Secondary NOT GIVENUNK [place] Insurance:SELF PAY [facility] Number: Effective Repository Date:2018-05-18 05/18/2018 STONE Rodriguez Primary ZOILA WEAVERDOB: [place] [id number] Insurance:MEDICAL [id number]. S. [facility], Number: Repository [place] [address]Lqy: [id number] Date:0587-69-41JX [address] () [address], [place] [address]ZC: 05/18/2018 Secondary NOT GIVENUNK [place] Insurance:SELF PAY [facility] Number: Effective Repository Date:2018-04-25 05/10/2018 STONE Rodriguez Primary ZOILA WEAVERDOB: [place] [id number] Insurance:MEDICAL [id number]. S. [facility], Number: Repository [place] [address]Ija: [id number] Date:9609-57-64HT B[address] () [address], [place] [address]IP: 05/10/2018 Secondary NOT GIVENUNK [place] Insurance:SELF PAY [facility] Number: Effective Repository Date:2018-04-25 05/09/2018 LANG [facility] WEAVERDOB: Insurance[facility] WEAVERDOB: Three Repository [id number] Number: [id number] MCCURDY [id number] [facility], Date: 8130-31-[address] [place] [id number]: [id number] [place] [address] (AO) [address]XK: 05/09/2018 Secondary ZOILA WEAVERDOB: [facility] Insurance:[facility] [id number] Three Repository Number: [address] [id number] [address] Date:9207-96-39CH [address] [place] [address] [place], [place] [address]EM: 04/25/2018 LANG J Primary ZOILA WEAVERDOB: [place] [id number] Insurance:MEDICAL [id number] [facility], Number: Repository [place] [address]Rbj: [id number] Date:4455-16-52PX [address] () [address], [place] [address]BW: 04/25/2018 Secondary NOT GIVENUNK [place] Insurance:SELF PAY [facility] Number: Effective Repository Date:2018-04-11 03/29/2018 LANG J Primary ZOILA WEAVERDOB: [place] [id number] Insurance:MEDICAL [id number] [facility], Number: Repository [place] [address]Kha: [id number] Date:7883-44-10XB BOX () [address] [place] [address]EK: 03/29/2018 Secondary NOT GIVENUNK [place] Insurance:SELF PAY [facility] Number: Effective Repository Date:2018-01-25 01/25/2018 LANG J Primary ZOILA WEAVERDOB: [employer] WEAVERDOB: Insurance:Medical [id number] [facility] [id number] [facility] Number: [address] [facility] Effective [address] Repository [facility], Date:2018-01-25[facility] [id number]: [id number] [id number]: Name:Medical MutualPO () [address] [address]YKMDNUBKP, (HP)Tel: (712) [place] [address]RY: [phone] (WP) 07/06/2017 STONE Welch ZOILA DAHLB: Taoismrashel DAHLB: Insurance:Medical [id number] [facility] [id number] MutualPolicy Number: [address] [facility] [address] Repository [facility], Date:2017-07-04[facility] [id number]: [id number] [id number]: Name:Medical MutualPO () [address] [address]IMOXKSOCI, (HP)Tel: (462) [place] [address]AZ: [phone] (WP)
== END 2018-05-10 10:44 | disposition home or self-care (01) ==
LOC: EN 07:59 → AC 08:02
PROVIDERS: Referring Provider Surgery; Visit Provider Surgery
PROC: 0DJD8ZZ Inspection of Lower Intestinal Tract, Via Natural or Artificial Opening Endoscopic (ICD-10-PCS; CPT 45378; principal; 2018-05-10 09:25)
DX: Z12.11 Encounter for screening for malignant neoplasm of colon (principal); K57.30 Diverticulosis of large intestine without perforation or abscess without bleeding; K64.8 Other hemorrhoids; K29.70 Gastritis, unspecified, without bleeding; K82.8 Other specified diseases of gallbladder; I10 Essential (primary) hypertension; G47.30 Sleep apnea, unspecified; G25.81 Restless legs syndrome; K21.9 Gastro-esophageal reflux disease without esophagitis; Z87.891 Personal history of nicotine dependence
CPT/HCPCS: 45378; 43239; 88305; 88342; J7120

== ENCOUNTER 2018-05-18 09:01 | Day surgery (SDC) | payer OTHER, SELFPAY ==
[2018-04-25 09:45] VITALS: BMI 28.8
[2018-05-10 08:15] VITALS: BMI 28.3
[2018-05-12 11:51] LABS: Hematocrit 42.1 % (40-54); Hemoglobin 14.9 g/dl (13.0-16.5); Mean Corp Hgb Conc 35.4 g/gl (32-36); Mean Corpuscular Hgb 33.2 pg (27.0-32.0); Mean Corpuscular Volume 93.8 fL (80-94); Mean Platelet Vol. 9.8 fl (6.2-12.0); Platelet Count 167 K/mm3 (150-450); RBC Distribution Width CV 12.3 % (11.6-14.6); RBC Distribution Width SD 41.3 fl (35.1-43.9); Red Blood Count 4.49 M/mm3 (4.6-6.2); White Blood Count 4.8 K/mm3 (4.4-11.0)
[2018-05-12 11:52] LABS: Scan Indicated on CBC? Y/N NO
[2018-05-12 12:14] LABS: Anion Gap 5 (5-15); BUN 19 mg/dL (7-18); BUN/Creat Ratio 17.4 RATIO (10-20); Calcium,Total 8.8 mg/dL (8.5-10.1); Chloride 105 mmol/L (98-107); Creatinine, Serum 1.09 mg/dL (0.70-1.30); EST Glomerular Filtration Rate 73 mL/min (>60); Est Glom Filt Rate - Afr Amer 89 mL/min (>60); Glucose 99 mg/dL (74-106); Potassium 4.4 mmol/L (3.5-5.1); Sodium Level 139 mmol/L (136-145)
[2018-05-18] VITALS (8 sets, daily range): BP systolic 94–146; BP diastolic 52–87; PULSE 58–71; RESP 14–18; TEMP 35.7–36.8; O2SAT 92–100; BMI 28.6
--- NOTE | 2018-05-18 09:12 | EKG12_ITS ---
Test Reason : PRE-OP Blood Pressure : / mmHG Vent. Rate : 066 BPM Atrial Rate : 066 BPM P-R Int : 182 ms QRS Dur : 136 ms QT Int : 426 ms P-R-T Axes : 072 049 027 degrees QTc Int : 446 ms Normal sinus rhythm Right bundle branch block Abnormal ECG Confirmed by VENESSA MENG, JERONIMO ([id number]), industrial editor FIONA LIM ([id number]) on 05/22/2018 1:51:17 PM Referred By: Anthony Mason Confirmed By:JERONIMO CLIFFORD MD
--- NOTE | 2018-05-18 11:10 | GALL_PTH ---
PATIENT: PRECIOUS CURIEL LOC: [place] U#:[id number] AGE/SX: 57/M ROOM: RE05/18/[address]: Dr. Anthony Mason MD : 1960 BED: DIS: 05/18/2018 SPEC #: [id number] RECD: 05/18/18 12:27 STATUS: CRISTOBAL AR #: [id number] ORLIN: 05/18/18 11:[address]: Anthony Mason DEPT: SURGICAL PATHOLOGY RECD BY: Shorty Guzman ENTERED: 05/18/18 12:53 SP TYPE: CAROLE VEGA DR: Dr. Farzad Acosta MD Tissues: Gallbladder, NOS Procedures: Surgery Specimen Level III HEADER OPERATION: Laparoscopic cholecystectomy PRE-OP DIAGNOSIS: Thickening of wall of gallbladder, right upper quadrant pain TISSUE SUBMITTED: Gallbladder MICROSCOPIC DIAGNOSIS Gallbladder, cholecystectomy: Chronic cholecystitis. AM:rianna 05/19/18 MICROSCOPIC DESCRIPTION Slides are reviewed. GROSS DESCRIPTION Received is one container labeled with the patient's name and designated gallbladder. The specimen consists of a gallbladder measuring 6.5 x 4 x 1 cm. The external surface is smooth and glistening. Focally, it is granular, hemorrhagic and contains cautery artifact. The lumen of the gallbladder contains yellow mucoid bile and no calculi. The mucosa is bile-stained and without any mass lesions. The gallbladder wall averages 0.2 cm in thickness and is free of mass lesions. Dance Choreographer sections of the gallbladder and the cystic duct are submitted in one cassette. / AM:rianna 05/18/18 TC:3 CPT: 88917
[2018-05-18] MEDS: Cefazolin 2 GM in 0.9% Normal Saline 100 ML IV (11:20)
--- NOTE | 2018-05-18 11:25 | PCM.OPRPT ---
Problem List (1) Right upper quadrant abdominal pain Status: Acute (2) Thickening of wall of gallbladder Status: Acute (3) Epigastric abdominal pain Status: Acute Report of Operation Date of Procedure: 05/18/18 Pre-Operative Diagnosis: Thickening of the wall of gallbladder. Right upper quadrant abdominal pain. Epigastric abdominal pain Post-Operative Diagnosis: Same Surgery/Procedure Performed:: Laparoscopic cholecystectomy Type of Anesthesia:: General Anesthesiologist: Filiberto Cox Specimen's removed: Gallbladder Estimated Blood Loss (mL): < 25 cc Description of Procedure: Patient was brought into the operating room. Placed in the supine position. Under excellent general trach intubation the abdomen was sterilely prepped and draped in the usual sterile fashion. Local was injected supraumbilically. A curvilinear incision was made. Dissection was carried down to an umbilical defect. I detached it from the umbilicus grabbed the fascia with a Finesse in place a varies needle inside the abdomen. I inflated the abdomen to 15 torr. A 10/12 trocar was placed without difficulty. The patient was placed in the head up and rotated to the left position. A subxiphoid #5 trocar was placed, inferior to this another #5 trocar was placed, laterally a #5 trocar was placed. All of these under direct visualization without injury to underlying structures. Fundus of the gallbladder was grasped retracted in a cephalad direction. Patient had dense adhesions on the gallbladder which were easily taken down with blunt dissection. I dissected out the cystic duct, the cystic artery, and posterior to the liver. I placed hemoclips proximally distally on the duct and ligated the duct. I placed hemoclips proximally distally on the artery and ligated the artery. I placed a clip on the posterior branch of the cystic artery. I deliver the gallbladder from the gallbladder bed with use of electrocautery. I had some spillage of bile but there were no stones. I placed a specimen a specimen bag and delivered through the umbilical port without difficulty. I irrigated the right upper quadrant and retrieved all the bile that was spilled. I had excellent hemostasis. I removed the 1012 trocar and closed the umbilical defect with 3 interrupted sutures of #1 Nurolon's. I reinflated the abdomen and inspected my repair it looked good and had good hemostasis. I removed the other trochars under direct visualization. Good hemostasis was noted. Skin incisions were closed with septicum stitches of 4-0 Monocryl. Steri-Strips were applied. Sterile dressings were applied. The patient tolerated the procedure well. - Admit VTE Documentation VTE Present on Admission: No VTE Mechan Device Prophylaxis: SCD's VTE Pharm Prophylaxis ordered?: No Reason prophylaxis not ordered:: Treatment Not Indicated
--- NOTE | 2018-05-18 11:28 | DCINST_ITS ---
Discharge Diet: Light diet - advance as tolerated Discharge Activity: May Not Drive - for 2-3 days or while taking narcotic pain medications., - - Do not drive, work heavy equipment or sign legal documents for 24 hours. May shower in (days): 1 - with the bandage in place. Additional Activity Instructions:: Pain medication may cause nausea. You should typically eat light foods as you take your pain medications. Pain medication may also cause constipation. If this is a problem for you, please discuss with your doctor. Call your doctor if your incision/area has: Continuous Slow Oozing, Sudden Increased Bleeding, Increased Pain/ Swelling, Increased Redness, Foul Smelling Discharge Call your doctor if you observe: Fever of 101 or Higher Suture Line Care: Avoid Pulling/Pushing, Avoid Pinching/Bending Additional Dressing/Incision Instructions:: Leave operative bandaids on for 2 days. When you remove dressing, leave Steri-Strips on until your follow-up appointment, or until the Steri-Strips fall off on their own. Allergies/Adverse Reactions: Allergies No Known Allergies Allergy (Verified 05/09/18 11:30) Medications to take at Discharge naproxen sodium 220 mg tablet 220 mg PO BID PRN 04/25/18 Oxycodone HCl/Acetaminophen [Percocet 5/325] 1 - 2 tab PO Q4H PRN PRN 5 Days #30 tab 05/18/18 The following prescriptions were given: Oxycodone HCl/Acetaminophen [Percocet 5/325] 1 - 2 tab PO Q4H PRN PRN 5 Days #30 tab PRN Reason: Pain Primary Care Physician: Farzad Acosta MD [Primary Care Provider] - Test Results: Test results from this visit will be discussed in further detail at your follow- up appointment, if applicable. Please Follow Up With: Anthony Mason MD - Please call [phone] to schedule an appointment. When: 7 days after your surgery.
[2018-05-18] MEDS: Bupivacaine 0.5% PF 10 ML VIAL (12:20)
== END 2018-05-18 15:53 | disposition home or self-care (01) ==
LOC: SDC 09:03 → AC 09:03
PROVIDERS: Anesthesiology; Referring Provider Surgery; Visit Provider Surgery
PROC: (CPT 47562; principal; 2018-05-18 10:50)
DX: K81.1 Chronic cholecystitis (principal); I10 Essential (primary) hypertension; I45.10 Unspecified right bundle-branch block; Z87.891 Personal history of nicotine dependence; G47.30 Sleep apnea, unspecified; G25.81 Restless legs syndrome; K21.9 Gastro-esophageal reflux disease without esophagitis
CPT/HCPCS: 47562; 36415; 80048; 85027; 88304; 93005; J7120; J2405